=== PATIENT | male | born 2000 | race Caucasian/White ===

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

== ENCOUNTER 2018-01-07 15:38 | Inpatient (IN) | payer OTHER ==
[~2018-01-07] VITALS: Ht 185.4 cm; Wt 54.0 kg
--- NOTE | ~2018-01-07 | CON ---
[place], [place] REPORT OF CONSULTATION NAME: TITUS LYONS UNIT #: [id number] ROOM: [place] [address] DOCTOR: ALLI, PHD RADHA BIRTHDATE: [birth year] DOS: 01/08/2018 HISTORY OF PRESENT ILLNESS: The patient is a 17-year-old male referred by the hospitalist following an intentional overdose on 10 mg Flexeril, after his girlfriend broke up with him. At the present time, the patient is in the ICU at [facility]. The patient lives with his mother and father. The patient denies alcohol, illegal drug and tobacco use. PAST MEDICAL HISTORY: Anxiety, asthma, flat foot, khyphoscoliosis, neuropathy. MEDICATIONS: Lovenox, Protonix, Dulcolax. The patient was awake, alert and oriented. Affect was restricted in range. Mood was depressed. He firmly denies suicidal ideation, plan, and intent. He stated that he impulsively took the pills and that it was the "the most stupid decision in his life." He firmly denied a desire for and verbally contracted for safety. He denied a history of self-harm and other suicide attempts. Discussed his relationship with his girlfriend and his thoughts related to this. Speech and language were within normal limits. Thought content and process were normal. Insight and judgment were fair. In my opinion, the patient did not appear to be in imminent risk to himself as he firmly denies current suicidal ideation, plan, and intent. Vandana Ness assessed the patient and believes he would be appropriate for outpatient treatment. She scheduled an appointment for him on 01/12/2018 at 1:00 p.m. He is looking forward to following up as an outpatient and does not want inpatient psychiatric treatment. His mother is in agreement with this plan. The patient provided consent to speak with her as she was by his bedside. The patient's father removed the pills and there are no firearms in the home. DIAGNOSIS: Major depressive disorder, single episode, unspecified. RECOMMENDATIONS: In my opinion, the patient would be appropriate to be discharged from a psychological perspective. He is agreeable to following up with Vandana Ness for counseling. Thank you very much for this consult. Regine Donald, PhD CM:CONSTR:REPORT OF CONSULTATION 1137 01/08/18 1810 interface
--- NOTE | ~2018-01-07 | EKG ---
[place], [place] ELECTROCARDIOGRAM REPORT NAME: TITUS LYONS UNIT #: [id number] ROOM: [place] [address] DOCTOR: PATIENCE DRAFT REPORT BIRTHDATE: [birth year] [facility] Test Date: 2018-01-07 Test Time: 16:13:34 Pat Name: TITUS LYONS Department: Room: [place] [address] Gender: M Field Underwriter: Sonia Fields : 2000 Requested By: SARINA FRIEDMAN Order Number: [id number] Reading MD: Hanane Joseph MD Measurements Intervals [place] Rate: 90 P: 79 [place]: 132 QRS: 100 QRSD: 93 T: 69 QT: 333 QTc: 408 Interpretive Statements Sinus rhythm Borderline right axis deviation Nonspecific T abnrm, anterolateral leads Compared to ECG 11/19/2017 01:44:10 ST (T wave) deviation now present Electronically Signed On 01-09-2018 14:45:54 PDT by Hanane Joseph MD CM:EKGRPT:ELECTROCARDIOGRAM REPORT [id number] SARINA VERDUZCO DRAFT REPORT SARINA FRIEDMAN DO
[~2018-01-07 15:38] MED LIST changes: +KEFLEX500 M1 PO; +PREDNISONE20 M1 PO; +ZYRTEC10 MG PO
[2018-01-07 15:40] VITALS: BP 122/76
[2018-01-07 16:13] LABS: BASO % 0.5 % (0.0-1.0); EOS % 0.1 % (1.0-4.0); HEMATOCRIT 46.5 % (42.0-52.0); LYMPH % 11.8 % (27.0-41.0); MEAN CELL VOLUME 87.2 fl (80.0-94.0); MEAN CORPUSCULAR HGB CONC 34.4 g/dl (33.0-37.0); MEAN PLATELET VOLUME 10.5 fl (9.6-12.3); MONO # 0.7 10*3/uL (0.1-1.0); MONO % 8.2 % (3.0-9.0); NEUT % 79.3 % (47.0-73.0); PLATELET COUNT AUTOMATED 234 10*3/uL (130-400); RED BLOOD COUNT 5.33 10*6/uL (4.50-5.90); WHITE BLOOD COUNT 8.8 10*3/uL (4.8-10.8)
[2018-01-07 16:23] LABS: ACT PARTIAL THROMBO TIME 26.5 SECONDS (20.8-31.5); INTERNATIONAL NORM RATIO 1.1 (2.0-3.5)
[2018-01-07 16:28] LABS: ALBUMIN 4.5 gm/dl (3.1-4.5); ALKALINE PHOSPHATASE 51 U/L (45-117); BUN 9 mg/dl (7-24); CHLORIDE 107 mmol/L (98-107); LIPASE 107 U/L (73-393); POTASSIUM 4.2 mmol/L (3.5-5.1); SGOT/AST 26 IU/L (3-35); SGPT/ALT 22 U/L (12-78); SODIUM 143 mmol/L (136-145); TOTAL PROTEIN 7.7 gm/dL (6.4-8.2)
[2018-01-07 16:31] LABS: ACETAMINOPHEN (TYLENOL) < 2.0 ug/ml (10-30); ETHYL ALCOHOL < 3.0 mg/dl (<3); TROPONIN I < 0.015 ng/ml (<0.045)
[2018-01-07 16:37] LABS: BILIRUBIN NEGATIVE (NEGATIVE); BLOOD NEGATIVE (NEGATIVE); CLARITY CLEAR (CLEAR); COLOR YELLOW (YELLOW); GLUCOSE NEGATIVE (NEGATIVE); KETONE NEGATIVE (NEGATIVE); LEUKO ESTERASE NEGATIVE (NEGATIVE); NITRITE NEGATIVE (NEGATIVE); PH 8.5 (5.0-9.0); SPECIFIC GRAVITY 1.015 (1.005-1.030)
[2018-01-07 16:43] LABS: WBC 0-2 wbc/hpf (0-5)
[2018-01-07 16:46] LABS: URINE AMPHETAMINES < 1000 (1000ng/ml); URINE BARBITURATES < 200 (200ng/ml); URINE BENZODIAZEPINES < 200 (200ng/ml); URINE CANNABINOIDS (THC) < 50 (50ng/ml); URINE COCAINE < 300 (300ng/ml); URINE METHADONE < 300 (300ng/ml); URINE OPIATES < 300 (300ng/ml)
[2018-01-07 16:47] LABS: URINE PHENCYCLIDINE < 25 (25ng/ml)
[2018-01-07 17:33] VITALS: BP 112/68
[2018-01-07 18:10] VITALS: BP 124/67
[2018-01-07] MEDS ORDERED: ADDERALL 30 MG30 MG PO (18:10)
[2018-01-07 20:00] VITALS: BP 113/58
[2018-01-08] VITALS: BP 114/52
[2018-01-08 04:00] VITALS: BP 106/66
[2018-01-08 06:13] LABS: BASO % 0.5 % (0.0-1.0); EOS # 0.1 10*3/uL (0.0-0.4); EOS % 1.2 % (1.0-4.0); HEMATOCRIT 41.1 % (42.0-52.0); LYMPH % 30.1 % (27.0-41.0); MEAN CELL VOLUME 89.2 fl (80.0-94.0); MEAN CORPUSCULAR HGB 29.9 pg (27.0-31.0); MEAN CORPUSCULAR HGB CONC 33.6 g/dl (33.0-37.0); MEAN PLATELET VOLUME 11.1 fl (9.6-12.3); MONO # 0.7 10*3/uL (0.1-1.0); NEUT # 3.8 10*3/uL (2.3-7.9); NEUT % 56.9 % (47.0-73.0); PLATELET COUNT AUTOMATED 190 10*3/uL (130-400); RED BLOOD COUNT 4.61 10*6/uL (4.50-5.90); WHITE BLOOD COUNT 6.6 10*3/uL (4.8-10.8)
[2018-01-08 06:14] LABS: ALBUMIN 3.4 gm/dl (3.1-4.5); BUN 8 mg/dl (7-24); CHLORIDE 112 mmol/L (98-107); HDL CHOLESTEROL 48 mg/dl (40-60); POTASSIUM 3.5 mmol/L (3.5-5.1); SGOT/AST 16 IU/L (3-35); SGPT/ALT 20 U/L (12-78); SODIUM 146 mmol/L (136-145)
[2018-01-08 06:16] LABS: INTERNATIONAL NORM RATIO 1.1 (2.0-3.5)
[2018-01-08 06:18] LABS: ALKALINE PHOSPHATASE 37 U/L (45-117); CHOLESTEROL 93 mg/dL (<200); CREATININE 0.45 mg/dL (0.70-1.30); LDL CHOLESTEROL 35 mg/dL (9-159); PHOSPHOROUS 3.8 mg/dL (2.5-4.9); THYROID STIM HORMONE (HS) 0.889 uIU/ml (0.358-4.75); TOTAL PROTEIN 6.1 gm/dL (6.4-8.2); TRIGLYCERIDES 51 mg/dl (<150); VLDL CHOLESTEROL 10 mg/dL (6-40)
[2018-01-08 06:23] LABS: HEMOGLOBIN 13.8 g/dl (14.0-18.0)
[2018-01-08 08:00] VITALS: BP 121/55
[2018-01-08 15:26] LABS: VITAMIN D, 25-HYDROXY 15.8 ng/mL (30-100)
== END 2018-01-08 11:55 | disposition home or self-care (01) | DRG 918 ==
LOC: ED 15:38 → EDHOLD 17:28 → ICCU 17:28
PROVIDERS: Emergency Medicine; Student in an Organized Health Care Education/Training Program
DX: T48.1X2A Poisoning by skeletal muscle relaxants [neuromuscular blocking agents], intentional self-harm, initial encounter (principal); R45.851 Suicidal ideations; E87.0 Hyperosmolality and hypernatremia; Z68.1 Body mass index [BMI] 19.9 or less, adult; E83.41 Hypermagnesemia; M41.9 Scoliosis, unspecified; F41.9 Anxiety disorder, unspecified; J45.909 Unspecified asthma, uncomplicated; G62.9 Polyneuropathy, unspecified; D64.9 Anemia, unspecified; R63.6 Underweight; F32.9 Major depressive disorder, single episode, unspecified; Y92.89 Other specified places as the place of occurrence of the external cause; Z79.899 Other long term (current) drug therapy; Z84.89 Family history of other specified conditions

== ENCOUNTER → 2020-04-17 | Outpatient (CLI) | payer OTHER ==
[~2020-04-17] MED LIST changes: +IBU800 MG PO
== END | disposition home or self-care (01) ==
LOC: COVID19 15:38
PROVIDERS: ATTEND Hospitalist
DX: Z20.822 Contact with and (suspected) exposure to COVID-19 (principal)

== ENCOUNTER 2020-05-16 13:38 | Emergency (ER) | payer SELFPAY ==
[~2020-05-16] VITALS: Ht 180.3 cm; Wt 58.1 kg
[~2020-05-16 13:38] MED LIST changes: -IBU800 MG PO
[2020-05-16 13:50] VITALS: BP 120/74
[2020-05-16] MEDS ORDERED: IBU800 MG PO (16:44)
== END 2020-05-16 17:20 | disposition home or self-care (01) ==
LOC: ED 13:38
DX: S09.90XA Unspecified injury of head, initial encounter (principal); S20.20XA Contusion of thorax, unspecified, initial encounter; T21.03XA Burn of unspecified degree of upper back, initial encounter; F41.9 Anxiety disorder, unspecified; J45.909 Unspecified asthma, uncomplicated; F17.200 Nicotine dependence, unspecified, uncomplicated; Z98.890 Other specified postprocedural states; Y08.89XA Assault by other specified means, initial encounter; Y93.89 Activity, other specified; Y92.89 Other specified places as the place of occurrence of the external cause; Y99.8 Other external cause status

== ENCOUNTER 2020-12-13 22:08 | Emergency (ER) | payer SELFPAY ==
[~2020-12-13 22:08] MED LIST changes: +IBU800 MG PO
== END 2020-12-13 23:41 | disposition left against medical advice (07) ==
LOC: ED 22:08
DX: R06.02 Shortness of breath (principal); Z53.21 Procedure and treatment not carried out due to patient leaving prior to being seen by health care provider

== ENCOUNTER 2021-08-08 21:42 | Emergency (ER) | payer SELFPAY ==
[2021-08-08 22:40] LABS: BASO # 0.1 10*3/uL (0.0-0.1); BASO % 0.8 % (0.0-1.0); EOS # 0.2 10*3/uL (0.0-0.4); HEMATOCRIT 48.8 % (42.0-52.0); LYMPH # 2.2 10*3/uL (1.3-4.4); LYMPH % 24.4 % (27.0-41.0); MEAN CELL VOLUME 86.1 fl (80.0-94.0); MEAN CORPUSCULAR HGB 29.8 pg (27.0-31.0); MEAN CORPUSCULAR HGB CONC 34.6 g/dl (33.0-37.0); MEAN PLATELET VOLUME 10.7 fl (9.6-12.3); MONO # 0.9 10*3/uL (0.1-1.0); MONO % 10.4 % (3.0-9.0); NEUT # 5.5 10*3/uL (2.3-7.9); NEUT % 62.2 % (47.0-73.0); PLATELET COUNT AUTOMATED 225 10*3/uL (130-400); RED BLOOD COUNT 5.67 10*6/uL (4.50-5.90); RED CELL DISTRI WIDTH 12.7 % (0-14.5); WHITE BLOOD COUNT 8.8 10*3/uL (4.8-10.8)
[2021-08-08 22:54] LABS: ALKALINE PHOSPHATASE 64 U/L (45-117); BUN 13 mg/dl (7-24); CHLORIDE 107 mmol/L (98-107); CREATININE 0.83 mg/dL (0.70-1.30); LIPASE 130 U/L (73-393); POTASSIUM 3.7 mmol/L (3.5-5.1); SGOT/AST 16 IU/L (3-35); SGPT/ALT 25 U/L (12-78); SODIUM 139 mmol/L (136-145); TOTAL PROTEIN 7.7 gm/dL (6.4-8.2)
[2021-08-09 00:42] VITALS: BP 114/61
== END 2021-08-09 01:33 | disposition home or self-care (01) ==
LOC: ED 21:42
PROVIDERS: Emergency Medicine
DX: K52.9 Noninfective gastroenteritis and colitis, unspecified (principal); J45.909 Unspecified asthma, uncomplicated

== ENCOUNTER 2022-06-19 05:08 | Emergency (ER) | payer OTHER ==
[~2022-06-19] VITALS: Ht 182.8 cm; Wt 49.9 kg
[2022-06-19 05:16] VITALS: BP 116/71
== END 2022-06-19 05:48 | disposition home or self-care (01) ==
LOC: ED 05:08
DX: H10.9 Unspecified conjunctivitis (principal); T49.5X5A Adverse effect of ophthalmological drugs and preparations, initial encounter; F41.9 Anxiety disorder, unspecified; J45.909 Unspecified asthma, uncomplicated; Z98.890 Other specified postprocedural states; Y92.009 Unspecified place in unspecified non-institutional (private) residence as the place of occurrence of the external cause

== ENCOUNTER 2024-11-03 18:54 | Emergency (ER) | payer OTHER ==
[~2024-11-03 18:54] MED LIST changes: +AVPAK AZITHROM250 M1 PO; +VENT7GM INH
[2024-11-03 19:35] LABS: BASO # 0.1 10*3/uL (0.0-0.1); BASO % 0.4 % (0.0-1.0); EOS # 0.3 10*3/uL (0.0-0.4); EOS % 2.4 % (1.0-4.0); MEAN CELL VOLUME 89.6 fl (80.0-94.0); MEAN CORPUSCULAR HGB 29.2 pg (27.0-31.0); MEAN PLATELET VOLUME 11.1 fl (9.6-12.3); MONO # 1.0 10*3/uL (0.1-1.0); MONO % 7.4 % (3.0-9.0); NEUT # 10.4 10*3/uL (2.3-7.9); NEUT % 78.7 % (47.0-73.0); NUCLEATED RED BLOOD CELL 0.0 % (0.0-0.0); NUCLEATED RED BLOOD CELL 0.0 10*3/uL (0.0-0.0); PLATELET COUNT AUTOMATED 198 10*3/uL (130-400); RED CELL DISTRI WIDTH 13.0 % (0-14.5)
[2024-11-03 19:49] LABS: BUN 8 mg/dl (9-23)
[2024-11-03 21:44] VITALS: BP 128/69
== END 2024-11-03 21:53 | disposition home or self-care (01) ==
LOC: ED 18:54
PROVIDERS: Internal Medicine
DX: B34.9 Viral infection, unspecified (principal); D72.829 Elevated white blood cell count, unspecified; Z20.822 Contact with and (suspected) exposure to COVID-19